=== PATIENT | female | born 1980 | race Caucasian/White ===

== ENCOUNTER → 2019-05-10 | Outpatient (CLI) | payer BC, OTHER ==
[~2019-05-10] MED LIST: DIGECAP7 PO; MIRA3350 PO; MULT1TAB10 PO; VITA-182 PO; VITATAB11 PO; ZYRT10CA PO
--- NOTE | 2019-05-11 14:26 | SLEEPCENT ---
DATE OF STUDY: 05/10/2019 ORDERED BY: Tuyet Turner Nocturnal polysomnography was performed for evaluation of sleep physiology in this patient with a history of excessive somnolence, snoring, and nonrestorative sleep. 7 hours and 28 minutes of data were reviewed. There were 337.5 minutes of sleep identified. Sleep latency was mildly prolonged at 17 minutes. Rapid eye movement (REM) latency was likewise mildly prolonged at 183 minutes. Sleep architecture was fair with one REM cycle. Overall sleep efficiency was 76.2%. The electrocardiogram showed a sinus rhythm with an average heart rate of 80 beats. EEG showed essentially normal waveforms for awake and sleep stages. There were no focal events identified. There were only five respiratory events identified of 10 seconds in duration or greater for an apnea-hypopnea index well within normal limits at 0.9. Some snoring was noted. Respiratory related arousals occurred 0.7 times per hour. Some limb activity was appreciated. Limb movement arousals were few at 3.2 per hour. Oxygen saturations remained normal at 90% plus. IMPRESSION: Normal nocturnal polysomnography with snoring.
== END ==
LOC: M SLEEP 20:00
PROVIDERS: ATTEND Nurse Practitioner Family
DX: R06.83 Snoring (principal)

== ENCOUNTER → 2022-05-10 | Outpatient (CLI) | payer BC, OTHER | LOC: M WHC 07:10 | PROVIDERS: ATTEND Nurse Practitioner Family | DX: Z12.31 Encounter for screening mammogram for malignant neoplasm of breast (principal) ==